=== PATIENT | male | born 1950 | race Hispanic/Latino ===

== ENCOUNTER 2018-01-15 09:31 | Emergency (ER) | payer MEDICARE, OTHER ==
[~2018-01-15] VITALS: Ht 185.4 cm; Wt 103.0 kg
[~2018-01-15 09:31] MED LIST: LOTENSIN40 MG PO; METFORMIN HCL500 M1 PO
[2018-01-15] MEDS ORDERED: METHYLPREDNISOLONE SOD SUCC 125 MG/2ML VIAL IM ONE (10:00)
[2018-01-15] MEDS ORDERED: TETANUS/DIPHTHERIA TOX ADULT 0.5 ML SYR IM ONE (10:15)
[2018-01-15] MEDS ORDERED: DEXAMETHASONE SOD PHOS 10 MG/1 ML VIAL INJ ONE (10:30)
== END 2018-01-15 10:38 | disposition home or self-care (01) ==
LOC: FSED 09:31
DX: L03.113 Cellulitis of right upper limb (principal); I10 Essential (primary) hypertension; E78.5 Hyperlipidemia, unspecified
CPT/HCPCS: 90471; 90714; 99284; J1100; J2930

== ENCOUNTER 2018-03-22 20:40 | Inpatient (IN) | payer MEDICARE ==
[~2018-03-22] VITALS: Ht 185.4 cm; Wt 102.5 kg
[2018-03-22] MEDS ORDERED: DIATRIZOATE MEGL/DIATRIZOA SOD 30 ML BTL PO ONE (21:32)
[2018-03-22 21:44] LABS: BASOPHILS % 0.3 % (0.0-1.0); EOSINOPHILS # (AUTO) 0.1 (0.0-0.4); EOSINOPHILS % 0.6 % (0.0-6.0); HEMATOCRIT 41.1 % (38.2-49.6); LYMPHOCYTES # (AUTO) 2.6 (1.0-3.2); LYMPHOCYTES % 27.6 % (18.0-39.1); MEAN CORPUSCULAR HEMOGLOBIN 28.7 pg (28-32); MEAN CORPUSCULAR HGB CONC 34.1 g/dL (31-35); MEAN CORPUSCULAR VOLUME 84.4 fL (81-99); MONOCYTES # (AUTO) 0.7 (0.2-0.8); MONOCYTES % 7.8 % (4.4-11.3); NEUTROPHILS % 63.6 % (38.7-80.0); PLATELET COUNT 251 x10e3/uL (140-360); RED BLOOD COUNT 4.87 x10e6/uL (4.3-5.7); RED CELL DISTRIBUTION WIDTH 14.4 % (11.7-14.4)
[2018-03-22 22:04] LABS: ANION GAP 15.3 mmol/L (8-16); CALCIUM 9.7 mg/dL (8.4-10.2); CREATININE, SERUM 1.25 mg/dL (0.72-1.25); POTASSIUM 4.3 mmol/L (3.5-5.1)
[2018-03-22] MEDS ORDERED: SODIUM CHLORIDE 0.9% 1000ML 1,000 ML IV ONE (22:30)
[2018-03-23] VITALS (8 sets, daily range): BP systolic 140–174; BP diastolic 65–84
[2018-03-23 00:07] LABS: BILIRUBIN,URINE NEGATIVE (NEGATIVE); CLARITY,URINE CLEAR (CLEAR); COLOR,URINE YELLOW (YELLOW); KETONES,URINE NEGATIVE (NEGATIVE); LEUKOCYTE ESTERASE ,URINE NEGATIVE (NEGATIVE); NITRITE,URINE NEGATIVE (NEGATIVE); PROTEIN,URINE DIPSTICK NEGATIVE (NEGATIVE); URINE UROBILINOGEN 0.2 mg/dL (0.2 - 1)
[2018-03-23] MEDS ORDERED: ONDANSETRON HCL INJ 2 MG/ML VIAL IV STA (00:29)
--- NOTE | 2018-03-23 01:09 | Diagnostic Imaging Report ---
EXAM: CT Abdomen and Pelvis WITH contrast INDICATION: Right lower quadrant pain. COMPARISON: None. TECHNIQUE: Abdomen and pelvis were scanned utilizing a multidetector helical scanner from the lung base to the pubic symphysis after administration of IV contrast. Coronal and sagittal reformations were obtained. Routine protocol was performed. Scan was performed when during portal venous phase. IV CONTRAST: 100 mL of Isovue-370 ORAL CONTRAST: Water RADIATION DOSE: Total DLP: 1119.02 mGy*cm Estimated effective dose: (DLP x 0.015 x size factor) mSv COMPLICATIONS: None FINDINGS: LINES and TUBES: None. LOWER THORAX: Small hiatal hernia present. HEPATOBILIARY: No focal hepatic lesions. No biliary ductal dilation. GALLBLADDER: No radio-opaque stones or sludge. No wall thickening. SPLEEN: No splenomegaly. PANCREAS: No focal masses or ductal dilatation. ADRENALS: No adrenal nodules KIDNEYS/URETERS: Kidneys enhance symmetrically. No hydronephrosis. No cystic or solid mass lesions. No stones. GI TRACT: Cecum and terminal ileum appear to be entrapped within the right inguinal canal contained within an indirect hernia . . The presence of fat stranding around the bowel involve this suggestive of strangulation.. There are diverticula within the colon without evidence of diverticulitis. Appendix is normal. PELVIC ORGANS/BLADDER: Unremarkable. LYMPH NODES: No lymphadenopathy. VESSELS: There is moderate atherosclerotic disease in the aorta and major arterial branches. PERITONEUM / RETROPERITONEUM: No free air or fluid. BONES: Unremarkable. SOFT TISSUES: Unremarkable. IMPRESSION: 1. Cecal and terminal ileum contained within an indirect right inguinal hernia resulting in partial/total obstruction is noted 2. Diverticulosis without evidence of diverticulitis. 3. Small hiatal hernia Signed by: Dr. Mumtaz Perez M.D. on 03/23/2018 1:06 AM
[2018-03-23] MEDS ORDERED: METRONIDAZOLE 500MG/NS 100ML IV SCH (01:30)
[2018-03-23] MEDS ORDERED: CEFOXITIN 1GM/ DEXTROSE 50ML ML IV SCH (01:30)
[2018-03-23] MEDS ORDERED: BENZOCAINE/TETRACAINE/BUTAMBEN AERO SPRAY 56 GM CAN TOP ONE (01:30)
[2018-03-23] MEDS ORDERED: DEXTROSE 50% SYRINGE 50 ML IV PRN (01:30)
[2018-03-23] MEDS ORDERED: LIDOCAINE VISC 2% SOLN 15 ML UDC ONE (01:38)
[2018-03-23] MEDS: SODIUM CHLORIDE 0.9% 1000ML 1,000 ML IV SCH ×3 (03:15→16:13)
[2018-03-23] MEDS ORDERED: ATORVASTATIN CA40 MG PO (04:02)
[2018-03-23] MEDS ORDERED: PIOGLITAZONE HC45 MG PO (04:02)
[2018-03-23] MEDS ORDERED: GLIMEPIRIDE2 MG PO (04:02)
[2018-03-23] MEDS ORDERED: CEFOXITIN SOD 1 GM VIAL ONE (05:29)
[2018-03-23] MEDS ORDERED: HYDRALAZINE HCL 20 MG/ML VIAL IV PRN (05:30)
[2018-03-23] MEDS ORDERED: SODIUM CHLORIDE 0.9% 50ML 50 ML ONE (05:31)
[2018-03-23] MEDS: CEFOXITIN 1GM/ DEXTROSE 50ML ML IV SCH ×2 (05:50→15:34)
[2018-03-23] MEDS ORDERED: ACETAMINOPHEN 1000 MG/100 ML IV PRN (06:15)
[2018-03-23] MEDS: INSULIN REGULAR, HUMAN 100 UNIT/1 ML 3ML VIAL SQ SCH ×4 (07:30→21:00)
[2018-03-23] MEDS: HYDROMORPHONE 1MG/1ML INJ IV PRN ×4 (09:53→16:29)
[2018-03-23] MEDS: ONDANSETRON HCL INJ 2 MG/ML VIAL IV PRN (09:53)
--- NOTE | 2018-03-23 10:08 | Consultation ---
DATE OF CONSULTATION: March 23, 2018 CHIEF COMPLAINT: Abdominal pain and vomiting. HISTORY OF PRESENT ILLNESS: The patient is a 67-year-old male with a known history of right inguinal hernia of 2 months duration, which has gotten more painful with associated nausea and vomiting in the last 24 hours. Patient denied fever or chills. No diarrhea. PAST MEDICAL HISTORY: Significant for hypertension and diabetes. ALLERGIES: PATIENT HAS NO DRUG ALLERGY. SOCIAL HABITS: The patient drinks socially, but does not smoke. SURGICAL HISTORY: Positive for right shoulder surgery. REVIEW OF SYSTEMS: No chest pain, shortness of breath or cough. PHYSICAL EXAMINATION VITALS: Stable. Afebrile. GENERAL: Patient is awake, alert and in moderate discomfort. HEENT: Sclera nonicteric. NECK: Supple. LUNGS: Clear to auscultation. HEART: Regular rate and rhythm. ABDOMEN: Soft. There is an incarcerated right inguinal hernia, which is not reducible. There is some mild tenderness to palpation in the groin area. EXTREMITIES: Without cyanosis or edema. White cell count is 9, hemoglobin of 14. Creatinine of 1.2. CT of the abdomen showed incarcerated cecum and terminal ileum and a right indirect inguinal hernia with intestinal obstruction. ASSESSMENT: Incarcerated possible strangulated right inguinal hernia. PLAN: Repair of incarcerated right groin hernia with mesh. Attendant risks discussed. Job#: [id number] SD
[2018-03-23] MEDS ORDERED: BUPIVACAINE HCL 0.5% INJ 30 ML VIAL INJ ONE (13:12)
[2018-03-23] MEDS ORDERED: CEFOXITIN 1GM/ DEXTROSE 50ML 50 ML IV SCH (16:00)
[2018-03-23] MEDS ORDERED: DEXAMETHASONE SOD PHOS INJ 4 MG/ML VIAL ONE (17:14)
[2018-03-23] MEDS ORDERED: LIDOCAINE HCL 2% LOCAL INJ 5 ML SDV VIAL INJ ONE (17:14)
[2018-03-23] MEDS ORDERED: PROPOFOL IV EMULSION 10 MG/ML 20 ML VIAL ONE (17:14)
[2018-03-23] MEDS ORDERED: NEOSTIGMINE 1 MG/ML 10ML VIAL ONE (17:14)
[2018-03-23] MEDS ORDERED: GLYCOPYRROLATE INJ 1MG/ 5 ML SYR ONE (17:14)
[2018-03-23] MEDS ORDERED: ROCURONIUM BROMIDE 10 MG/ML 5ML VIAL ONE (17:14)
[2018-03-23] MEDS ORDERED: KETOROLAC TROMETHAMINE 30 MG/ML VIAL ONE (17:14)
[2018-03-23] MEDS ORDERED: DESFLURANE 240 ML BTL INH ONE (17:14)
[2018-03-23] MEDS ORDERED: MIDAZOLAM HCL 2 MG/2 ML VIAL ONE (18:53)
[2018-03-23] MEDS ORDERED: FENTANYL CITRATE/PF 100MCG/2 ML INJ ONE (18:53)
--- NOTE | 2018-03-23 20:52 | Operative Report ---
DATE OF PROCEDURE: March 23, 2018 PREOPERATIVE DIAGNOSIS: Incarcerated right inguinal hernia. POSTOPERATIVE DIAGNOSIS: Incarcerated right inguinal hernia. OPERATIVE PROCEDURE: Repair of incarcerated right inguinal hernia with mesh. PHOTO MANAGER: None. ANESTHESIA: General endotracheal. INDICATIONS: A 67-year-old male with history of right inguinal hernia of long duration which became incarcerated and vomiting showing bowel obstruction. The patient then consented for repair of incarcerated right inguinal hernia with mesh with all attendant risks discussed. PROCEDURE FINDINGS: Incarcerated bowel in the hernia sac. DESCRIPTION OF PROCEDURE: The patient brought to the OR intubated. Abdomen prepped with alcohol and draped in sterile fashion. A right inguinal incision is made extending down through the fascia of the external oblique which is then opened in direction of its fibers. The underlying muscle is split and the preperitoneal space is entered. Patient's right spermatic cord is identified and placed in traction with a [place] drain. A large direct hernia sac with incarcerated bowel is then reduced from the inguinal canal and dissected off the spermatic cord to the level of iliac crest. We then proceeded to deploy a 6 x 6 inch Physiomesh into the preperitoneal space and anchored medially to the Henri's ligament with a stitch of 2-0 Prolene suture. The mesh covered the direct and indirect as well as the femoral area. Anteriorly the mesh is anchored to the overlying repair of the transversalis fascia and abdominis muscle with interrupted 2-0 Vicryl. The ____ oblique fascia was then repaired with running 2-0 Prolene stitches. Subcutaneous tissue approximated with 3-0 Vicryl. Skin is closed with subcuticular stitch. The patient is extubated and transported to the recovery room. Estimated blood loss is 5 mm. Job#: [id number]
[2018-03-24 00:07] VITALS: BP 129/59
[2018-03-24] MEDS: CEFOXITIN SOD 1 GM VIAL IV SCH ×2 (00:23→08:13)
[2018-03-24] MEDS: SODIUM CHLORIDE 0.9% 1000ML 1,000 ML IV SCH ×2 (01:43→08:23)
[2018-03-24] MEDS: ONDANSETRON HCL INJ 2 MG/ML VIAL IV PRN (03:02)
[2018-03-24] MEDS: HYDROMORPHONE 1MG/1ML INJ IV PRN (03:03)
[2018-03-24 05:25] LABS: BASOPHILS % 0.3 % (0.0-1.0); EOSINOPHILS % 0.4 % (0.0-6.0); HEMATOCRIT 36.4 % (38.2-49.6); HEMOGLOBIN 12.1 g/dL (14.0-18.0); LYMPHOCYTES # (AUTO) 1.4 (1.0-3.2); LYMPHOCYTES % 20.1 % (18.0-39.1); MEAN CORPUSCULAR HEMOGLOBIN 28.9 pg (28-32); MEAN CORPUSCULAR HGB CONC 33.2 g/dL (31-35); MEAN CORPUSCULAR VOLUME 87.1 fL (81-99); MONOCYTES # (AUTO) 0.6 (0.2-0.8); MONOCYTES % 9.2 % (4.4-11.3); NEUTROPHILS # (AUTO) 4.8 (2.1-6.9); NEUTROPHILS % 69.9 % (38.7-80.0); PLATELET COUNT 213 x10e3/uL (140-360); RED BLOOD COUNT 4.18 x10e6/uL (4.3-5.7); RED CELL DISTRIBUTION WIDTH 14.3 % (11.7-14.4)
[2018-03-24 05:26] VITALS: BP 127/58
[2018-03-24 06:01] LABS: ALANINE AMINOTRANSFERASE 15 IU/L (0-55); ALBUMIN 3.1 g/dL (3.5-5.0); ALKALINE PHOSPHATASE 83 IU/L (40-150); ANION GAP 12.4 mmol/L (8-16); BLOOD UREA NITROGEN 17 mg/dL (7-26); BUN/CREATININE RATIO 16 (6-25); CALCIUM 8.6 mg/dL (8.4-10.2); CARBON DIOXIDE 27 mmol/L (22-29); CHLORIDE 100 mmol/L (98-107); CREATININE, SERUM 1.09 mg/dL (0.72-1.25); EST GLOMERULAR FILTRATION RATE > 60 ML/MIN (60-); GLUCOSE 117 mg/dL (74-118); POTASSIUM 4.4 mmol/L (3.5-5.1); SODIUM 135 mmol/L (136-145)
[2018-03-24 07:20] VITALS: BP 147/61
[2018-03-24 08:00] VITALS: BP 147/61
[2018-03-24] MEDS: INSULIN REGULAR, HUMAN 100 UNIT/1 ML 3ML VIAL SQ SCH ×2 (08:22→11:30)
[2018-03-24 12:29] VITALS: BP 144/60
[2018-03-24] MEDS ORDERED: CEFOXITIN SOD 1 GM VIAL IV SCH (16:15)
[2018-03-24 16:30] VITALS: BP 121/59
== END 2018-03-24 17:05 | disposition home or self-care (01) | DRG 352 ==
LOC: ER 20:40 → ERHOLD 03-23 01:37 → MED/SURG2 03-23 02:47
PROVIDERS: ADMIT Internal Medicine; ATTEND Internal Medicine
PROC: 0YU50JZ Supplement Right Inguinal Region with Synthetic Substitute, Open Approach (ICD-10-PCS; principal; 2018-03-23 13:00)
DX: K40.30 Unilateral inguinal hernia, with obstruction, without gangrene, not specified as recurrent (principal); I10 Essential (primary) hypertension; E11.9 Type 2 diabetes mellitus without complications
CPT/HCPCS: 36415; 74177; 80053; 81001; 82150; 82948; 83690; 85025; 96361; 99284; J0694; J1100; J1170; J1885; J2001; J2250; J2405; J2710; J7030

== ENCOUNTER 2020-06-16 17:07 | Observation (INO) | payer MEDICARE, OTHER ==
[~2020-06-16] VITALS: Ht 185.4 cm; Wt 102.5 kg
[~2020-06-16 17:07] MED LIST changes: +ATORVASTATIN CA40 MG PO; +GLIMEPIRIDE2 MG PO; +PIOGLITAZONE HC45 MG PO
--- OUTSIDE RECORDS SUMMARY | 2020-06-16 18:03 | XMS REPORT | Continuity of Care Document ---
Author Author [facility] t Organization [facility] Address [address] [place] [address] Phone Unavailable Care Team Providers Care Blade Groover Name Role Phone ANGEL MENDOZA MD PCP Terri ROJAS Attphymanpreet Unavailable Payers Payer Name Policy Type Policy Number Effective Date Expiration Date Manpreet Huynh [facility] [id number] 2013 00:00:00 [facility] Problems Condition Name Condition Details Condition Category Status Onset Date Resolution Date Last Treatment Date Treating Clinician Comments Source Incarcerated right inguinal hernia Incarcerated right inguinal h ernia Problem Active [facility] Inguinal hernia with obstruction Inguinal hernia with bowel obst ruction Problem Active [facility] Allergies, Adverse Reactions, Alerts This patient has no known allergies or adverse reactions. Medications Ordered Medication Name Filled Medication Name Start Date Stop Da te Current Medication? Ordering Clinician Indication Dosage Frequency Signature (SIG) Comments Components Source Atorvastatin Calcium 40 Mg Tablet Atorvastatin Calcium 40 Mg Tablet Yes 40 Bedtime [facility] Benazepril Hcl (Lotensin) 40 Mg Tablet Benazepril Hcl (Lotensin) 40 Mg Tablet Yes 40 Rt Daily [facility] Glimepiride 2 Mg Tablet Glimepiride 2 Mg Tablet Yes 4 Daily [facility] Metformin Hcl (Metformin Hcl Er) 500 Mg Tab.er.24h Met formin Hcl (Metformin Hcl Er) 500 Mg Tab.er.24h Yes 500 Twice A Day [facility] Pioglitazone Hcl 45 Mg Tablet Pioglitazone Hcl 45 Mg Tablet Yes 30 Daily [facility] Procedures Procedure Date / Time Performed Performing Clinician Polly e Repair, inguinal hernia, right 2018-03-23 00:00:00 NEGRITO KRISHNA [facility] Computed tomography of abdomen and pelvis with contrast 2017 00:00:00 ANNI ROJAS [facility] Encounters Start Date/Time End Date/Time [facility] Source 2018-03-23 01:37:00 2018-03-24 17:05:00 Discharged Inpatient 1 ANNI ROJAS [facility] [id number] [facility] 2018-01-15 09:31:00 2018-01-15 10:38:00 Departed Emergency Room [facility] [id number] [facility] Results Test Description Test Time Test Comments Results Result Comments Source Bedside Glucose 2018-03-24 16:07:00 Test Item Bedside Glucose (test code = 35869-3) 132 70-120 [id number] 2018-03-24 06:01:00* Test Item Value Reference Range Interpretation Comments Sodium Level (test code = 2951-2) 135 136-145 L [facility] Aloqv7725-04-96 06:01:00* Test Item Value Reference Range Interpretation Comments Potassium Level (test code = 2823-3) 4.4 3.5-5.1 [facility]loride Gjrhw3764-43-43 06:01:00* Test Item Value Reference Range Interpretation Comments Chloride Level (test code = 2075-0) 100 98-107 [facility] MarshallCar[facility] Dioxide Zhrar0724-87-33 06:01:00* Test Item Value Reference Range Interpretation Comments Carbon Dioxide Level (test code = 2028-9) 27 22-29 [facility] MarshallAnion Kmc9112-43-19 06:01:00* Test Item Value Reference Range Interpretation Comments Anion Gap (test code = 29722-2) 12.4 8-16 [facility] Urea Vxdvmjow0018-07-51 06:01:00* Test Item Value Reference Range Interpretation Comments Blood Urea Nitrogen (test code = 3094-0) 17 7-26 [facility] MarshallCreatinine2018-07-19 06:01:00* Test Item Value Reference Range Interpretation Comments Creatinine (test code = 2160-0) 1.09 0.72-1.25 [facility] Marshall[facility]UN/Creatinine Aftbg8420-49-33 06:01:00* Test Item Value Reference Range Interpretation Comments BUN/Creatinine Ratio (test code = 3097-3) 16 6-25 [facility] Marshall[facility]at Glomerular Filtration Rate 2018-03-24 06:01:00* Test Item Value Reference Range Interpretation Comments Estimat Glomerular Filtration Rate (test code = 89069-2) 60- >60 Ranges were taken from the National Kidney Disease Education Program and the [facility] Kidney Foundation literature.Reference ranges:60 or greater: Dymrwp58-73 ( for 3 consecutive months): Chronic kidney disease 15 or less: Kidney failureCHRISTUS [facility] Shepherd Medical Center – MarshallGlucose Qpstg4753-50-10 06:01:00* Test Item Value Reference Range Interpretation Comments Glucose Level (test code = KRS0578) 117 74-118 [facility] MarshallCalcium Bdwkr7347-42-08 06:01:00* Test Item Value Reference Range Interpretation Comments Calcium Level (test code = 41606-4) 8.6 8.4-10.2 [facility] MarshallTotal Qvweczwgm3390-48-91 06:01:00* Test Item Value Reference Range Interpretation Comments Total Bilirubin (test code = 1975-2) 0.9 0.2-1.2 [facility] MarshallAspartate Amino Transf (AST/SGOT) 2018-03-24 06:01:00* Test Item Value Reference Range Interpretation Comments Aspartate Amino Transf (AST/SGOT) (test code = Aspartate Amino Transf (AST/SGOT)) 14 5-34 [facility] MarshallAlanine Aminotransferase (ALT/SGPT) 2018-03-24 06:01:00* Test Item Value Reference Range Interpretation Comments Alanine Aminotransferase (ALT/SGPT) (test code = 1742-6) 15 0-55 [facility] Zjqsyje8693-93-89 06:01:00* Test Item Value Reference Range Interpretation Comments Total Protein (test code = 2885-2) 6.2 6.5-8.1 L [facility] MarshallAlbumin2018-07-19 06:01:00* Test Item Value Reference Range Interpretation Comments Albumin (test code = 1751-7) 3.1 3.5-5.0 L [facility] MarshallGlobulin2018-07-19 06:01:00* Test Item Value Reference Range Interpretation Comments Globulin (test code = 19335-8) 3.1 2.3-3.5 [facility] MarshallAlbumin/Globulin Qidll6323-07-35 06:01:00 * Test Item Value Reference Range Interpretation Comments Albumin/Globulin Ratio (test code = 1759-0) 1.0 0.8-2.0 [facility] MarshallAlkaline Gegjxxnaoxz5814-39-71 06:01:00* Test Item Value Reference Range Interpretation Comments Alkaline Phosphatase (test code = 6768-6) 83 40-150 [facility] MarshallWhite Blood Yxzoe9460-20-99 05:47:00* Test Item Value Reference Range Interpretation Comments White Blood Count (test code = 6690-2) 6.88 4.8-10.8 [facility] MarshallRed Blood Yxkjg4571-02-89 05:47:00* Test Item Value Reference Range Interpretation Comments Red Blood Count (test code = 789-8) 4.18 4.3-5.7 L [facility] MarshallHemoglobin2018-07-19 05:47:00* Test Item Value Reference Range Interpretation Comments Hemoglobin (test code = 20958-6) 12.1 14.0-18.0 L [facility] MarshallHematocrit2018-07-19 05:47:00* Test Item Value Reference Range Interpretation Comments Hematocrit (test code = 4544-3) 36.4 38.2-49.6 L [facility] MarshallMean Corpuscular Wlaftv8096-69-50 05:47:00* Test Item Value Reference Range Interpretation Comments Mean Corpuscular Volume (test code = 787-2) 87.1 81-99 [facility] MarshallMean Corpuscular Iocnypfmic0183-20-03 05:47:00* Test Item Value Reference Range Interpretation Comments Mean Corpuscular Hemoglobin (test code = 785-6) 28.9 28-32 [facility] MarshallMean Corpuscular Hemoglobin Concent 2018-03-24 05:47:00* Test Item Value Reference Range Interpretation Comments Mean Corpuscular Hemoglobin Concent (test code = 786-4) 33.2 31-35 [facility] MarshallRed Cell Distribution Pydjw4137-60-66 05:47:00* Test Item Value Reference Range Interpretation Comments Red Cell Distribution Width (test code = 25943-8) 14.3 11.7 -14.4 [facility] MarshallPlatelet Iwapl6790-11-16 05:47:00* Test Item Value Reference Range Interpretation Comments Platelet Count (test code = 777-3) 213 140-360 [facility] MarshallNeutrophils (%) (Auto)2018-03-24 05:47:00 * Test Item Value Reference Range Interpretation Comments Neutrophils (%) (Auto) (test code = 98315-5) 69.9 38.7-80.0 [facility] MarshallLymphocytes (%) (Auto)2018-03-24 05:47:00 * Test Item Value Reference Range Interpretation Comments Lymphocytes (%) (Auto) (test code = 736-9) 20.1 18.0-39.1 [facility] MarshallMonocytes (%) (Auto)2018-03-24 05:47:00* Test Item Value Reference Range Interpretation Comments Monocytes (%) (Auto) (test code = 5905-5) 9.2 4.4-11.3 [facility] MarshallEosinophils (%) (Auto)2018-03-24 05:47:00 * Test Item Value Reference Range Interpretation Comments Eosinophils (%) (Auto) (test code = 713-8) 0.4 0.0-6.0 [facility] MarshallBasophils (%) (Auto)2018-03-24 05:47:00* Test Item Value Reference Range Interpretation Comments Basophils (%) (Auto) (test code = 706-2) 0.3 0.0-1.0 [facility] MarshallIM GRANULOCYTES %2018-03-24 05:47:00* Test Item Value Reference Range Interpretation Comments IM GRANULOCYTES % (test code = IM GRANULOCYTES %) 0.1 0.0- 1.0 [facility] MarshallNeutrophils # (Auto)2018-03-24 05:47:00* Test Item Value Reference Range Interpretation Comments Neutrophils # (Auto) (test code = 751-8) 4.8 2.1-6.9 [facility] MarshallLymphocytes # (Auto)2018-03-24 05:47:00* Test Item Value Reference Range Interpretation Comments Lymphocytes # (Auto) (test code = 33693-1) 1.4 1.0-3.2 [facility] MarshallMonocytes # (Auto)2018-03-24 05:47:00* Test Item Value Reference Range Interpretation Comments Monocytes # (Auto) (test code = 742-7) 0.6 0.2-0.8 [facility] MarshallEosinophils # (Auto)2018-03-24 05:47:00* Test Item Value Reference Range Interpretation Comments Eosinophils # (Auto) (test code = 711-2) 0.0 0.0-0.4 [facility] MarshallBasophils # (Auto)2018-03-24 05:47:00* Test Item Value Reference Range Interpretation Comments Basophils # (Auto) (test code = 704-7) 0.0 0.0-0.1 [facility] MarshallAbsolute Immature Granulocyte (auto 2018-03-24 05:47:00* Test Item Value Reference Range Interpretation Comments Absolute Immature Granulocyte (auto (michelle t code = Absolute Immature Granulocyte (auto) 0.01 0-0.1 [facility] MarshallCT ABDOM[facility]/PELVIS [id number] 01:03:00 [place] [address] Patient Name: DAVIN RASMUSSEN JR MR #: [id number] OB: 1950 Age/Sex: 67/M Req #: [id number] Adm Physic ann-marie: Ordered by: ANNI ROJAS MD Report #: [id number] Location: E R Room/Bed: Procedure: [id number] CT/CT ABDOMEN/PELVI S W Exam Date: 03/22/18 Exam Time: 0 REPORT STATUS: Signed EXAM: CT Abdomen and Pelvis WITH contrast INDICATION: Rig ht lower quadrant pain. COMPARISON: None. TECHNIQUE: Abdomen and pelvis were scanned utilizing a multidetector helical scanner from the lung base to the p ubic symphysis after administration of IV contrast. Coronal and sagittal refor mations were obtained. Routine protocol was performed. Scan was performed when during portal venous phase. IV CONTRAST: 100 mL of Isovue-370 ORAL CONTRAST: Water RADIATION DOSE: Total DLP: 1119.02 mGy*cm Estimated effective dose: (DLP x 0.015 x size factor) mSv COMPLICATIONS: None FINDINGS: LINES and TUBES: None. LOWER THORAX: Small hiatal hernia present. HEPATOBILIARY: No focal hepatic lesions. No biliary ductal dilation. GALLBLADDER: No radio-opaque stones or sludge. No wall thickening. SPLEEN: No splenomegaly. PANC REAS: No focal masses or ductal dilatation. ADRENALS: No adrenal nodules KIDNEYS/URETERS: Kidneys enhance symmetrically. No hydronephrosis. No cystic or solid mass lesions. No stones. GI TRACT: Cecum and terminal il eum appear to be entrapped within the right inguinal canal contained within an indirect hernia . . The presence of fat stranding around the bowel involve th is suggestive of strangulation.. There are diverticula within the colon withou t evidence of diverticulitis. Appendix is normal. PELVIC ORGANS/BLADDER: Unremarkable. LYMPH NODES: No lymphadenopathy. VESSELS: There is mode rate atherosclerotic disease in the aorta and major arterial branches. PE RITONEUM / RETROPERITONEUM: No free air or fluid. BONES: Unremarkable. SOFT TISSUES: Unremarkable. IMPRESSION: 1. Cecal and termi nal ileum contained within an indirect right inguinal hernia resulting in part ial/total obstruction is noted 2. Diverticulosis without evidence of divertic ulitis. 3. Small hiatal hernia Signed by: Dr. Mumtaz Perez M.D. on 2017 1:06 AM Dictated By: MUMTAZ GUIDO MD 5 Transcribed By: YU on 105 COPY TO: ANNI ROJAS MD Urine [id number] 00:21:00* Test Item Value Reference Range Interpretation Comments Urine WBC (test code = 5821-4) NONE 0-5 [facility] [id number] 00:21:00* Test Item Value Reference Range Interpretation Comments Urine RBC (test code = 38601-7) NONE 0-5 [facility] Marshall[facility] Tgxmfkyp2003-12-13 00:21:00* Test Item Value Reference Range Interpretation Comments Urine Bacteria (test code = 26151-5) NONE NONE [facility] Epithelial Kvoyr2489-83-04 00:21:00 * Test Item Value Reference Range Interpretation Comments Urine Epithelial Cells (test code = 13717-1) NONE NONE [facility] Marshall[facility] Tnvrj9742-67-05 00:07:00* Test Item Value Reference Range Interpretation Comments Urine Color (test code = 5778-6) YELLOW YELLOW [facility] Marshall[facility] Trmjdye3236-39-48 00:07:00* Test Item Value Reference Range Interpretation Comments Urine Clarity (test code = 44586-3) CLEAR CLEAR [facility] MarshallU[facility] Specific [id number] 00:07:00 * Test Item Value Reference Range Interpretation Comments Urine Specific Machias (test code = 5811-5) 1.015 1.010-1.02 5 [facility] Marshall[facility] [id number] 00:07:00* Test Item Value Reference Range Interpretation Comments Urine pH (test code = 17617-6) 6 5-7 [facility] Leukocyte Dgmuklgu7624-21-72 00:07:00* Test Item Value Reference Range Interpretation Comments Urine Leukocyte Esterase (test code = 5799-2) NEGATIVE NEGATIVE [facility] Gerkfii9643-08-73 00:07:00* Test Item Value Reference Range Interpretation Comments Urine Nitrite (test code = 08317-0) NEGATIVE NEGATIVE [facility] Lfpfhnw2774-18-58 00:07:00* Test Item Value Reference Range Interpretation Comments Urine Protein (test code = 5804-0) NEGATIVE NEGATIVE [facility] Marshall[facility] Glucose (UA)2018-03-23 00:07:00* Test Item Value Reference Range Interpretation Comments Urine Glucose (UA) (test code = 2349-9) 1+ NEGATIVE H [facility] MarshallU[facility] Ozrmfdf0916-40-21 00:07:00* Test Item Value Reference Range Interpretation Comments Urine Ketones (test code = 78543-1) NEGATIVE NEGATIVE [facility] Marshall[facility] Yduyqhgtmaba2259-31-25 00:07:00* Test Item Value Reference Range Interpretation Comments Urine Urobilinogen (test code = 66441-5) 0.2 0.2-1 [facility] Marshall[facility] Yayqrttsj3086-42-21 00:07:00* Test Item Value Reference Range Interpretation Comments Urine Bilirubin (test code = 1978-6) NEGATIVE NEGATIVE [facility] Marshall[facility] Lodxe9959-41-66 00:07:00* Test Item Value Reference Range Interpretation Comments Urine Blood (test code = 09508-2) NEGATIVE NEGATIVE [facility] MarshallAmylase Hdcgb6683-97-30 22:09:00* Test Item Value Reference Range Interpretation Comments Amylase Level (test code = 1798-8) 71 25-125 [facility] MarshallLipase2018-07-17 22:09:00* Test Item Value Reference Range Interpretation Comments Lipase (test code = 3040-3) 16 8-78 [facility]
[2020-06-16 18:16] LABS: BASOPHILS % 0.4 % (0.0-1.0); EOSINOPHILS % 0.3 % (0.0-6.0); HEMATOCRIT 41.6 % (38.2-49.6); HEMOGLOBIN 13.5 g/dL (14.0-18.0); LYMPHOCYTES # (AUTO) 1.6 (1.0-3.2); LYMPHOCYTES % 14.7 % (18.0-39.1); MEAN CORPUSCULAR HEMOGLOBIN 28.1 pg (28-32); MEAN CORPUSCULAR HGB CONC 32.5 g/dL (31-35); MEAN CORPUSCULAR VOLUME 86.5 fL (81-99); MONOCYTES # (AUTO) 0.8 (0.2-0.8); MONOCYTES % 6.9 % (4.4-11.3); NEUTROPHILS # (AUTO) 8.6 (2.1-6.9); NEUTROPHILS % 77.4 % (38.7-80.0); PLATELET COUNT 231 x10e3/uL (140-360); RED BLOOD COUNT 4.81 x10e6/uL (4.3-5.7); RED CELL DISTRIBUTION WIDTH 14.9 % (11.7-14.4)
--- NOTE | 2020-06-16 18:28 | Diagnostic Imaging Report ---
History: Syncope Comparison studies: None Technique: Axial images were obtained from the skull base to the vertex. Coronal and sagittal reconstructions obtained from the axial data. Dose modulation, iterative reconstruction, and/or weight based adjustment of the mA/kV was utilized to reduce the radiation dose to as low as reasonably achievable. Intravenous contrast: None Findings: Scalp/skull: No abnormalities. No fractures, blastic or lytic lesions. Extra-axial spaces: No masses. No fluid collections. Brain sulci: Appropriate for age. Ventricles: Normal in size and configuration. No hydrocephalus. Parenchyma: No abnormal densities. No masses, hemorrhage, acute or chronic cortical vascular insults. Sellar/suprasellar region: No abnormalities Craniocervical junction: Patent foramen magnum. No Chiari one malformation. Incidental findings: Subtle atherosclerotic calcifications in the carotid siphons. IMPRESSION: No intracranial abnormalities. Signed by: Dr. Clayton Eason M.D. on 06/16/2020 6:24 PM
--- NOTE | 2020-06-16 18:31 | Emergency Department Note ---
History of Present Illnes History of Present Illness Chief Complaint: Chest Pain History of Present Illness This is a 69 year old male SUDDEN ONSET L SIDED CP FOLLOWED BY SYNCOPAL EPISODE AT 1330 TODAY. SENT TO ER FOR EVAL BY DR WITT. PT DENIES ANY SYMPTOMS AT THIS TIME.. Historian: Patient Arrival Mode: Car Onset (how long ago): hour(s) (5) Location: left chest Quality: pain and syncope Radiation: Reports non-radiation Severity: severe Onset quality: sudden Duration (how long): hour(s) (5) Timing of current episode: unable to specify Progression: resolved Chronicity: new Context: Denies recent illness, Denies recent surgery, Denies recent travel, Denies trauma/injury Relieving factors: none Exacerbating factors: none Associated symptoms: Reports denies other symptoms Treatments prior to arrival: none Past Medical/Family History Physician Review I have reviewed the patient's past medical and family history. Any updates have been documented here. Past Medical History Recent Fever: No Clinical Suspicion of Infectio: No New/Unexplained Change in Ment: No Past Medical History: Hypertension, Diabetes, Hyperlipedemia Other Medical History: R SHOULDER Past Surgical History: T&A Other Surgery: RIGHT SHOULDER SURGERY HERNIA Social History Smoking Cessation: Former smoker Alcohol Use: None Any Illegal Drug Use: No Family History Family history of heart diseas: No Other Last Tetanus: UTD Review of Systems Review of Systems Constitutional: Reports no symptoms EENTM: Reports no symptoms Cardiovascular: Reports as per HPI Respiratory: Reports no symptoms Gastrointestinal: Reports no symptoms Genitourinary: Reports no symptoms Musculoskeletal: Reports no symptoms Integumentary: Reports no symptoms Neurological: Reports as per HPI Psychological: Reports no symptoms Endocrine: Reports no symptoms Hematological/Lymphatic: Reports no symptoms Physical Exam Related Data Allergies: Coded Allergies: No Known Allergies (Unverified , 02/22/14) Triage Vital Signs Vital Signs Date Time Temp Pulse Resp B/P (MAP) Pulse Ox O2 Delivery O2 Flow Rate FiO2 06/16/20 17:24 98.6 87 18 170/50 100 Room Air Vital signs reviewed: Yes Physical Exam CONSTITUTIONAL Constitutional: Present well-developed, Present well-nourished; Absent distressed HENT HENT: Present normocephalic, Present oropharynx clear/moist, Present nose normal, Present other (abrasion to right side of tongue) HENT L/R: Present left ext ear normal, Present right ext ear normal EYES Eyes: Reports PERRL, Reports conjunctivae normal NECK Neck: Present ROM normal PULMONARY Pulmonary: Present effort normal, Present breath sounds normal CARDIOVASCULAR Cardiovascular: Present regular rhythm, Present heart sounds normal, Present capillary refill normal, Present normal rate GASTROINTESTINAL Abdominal: Present soft, Present nontender, Present bowel sounds normal GENITOURINARY Genitourinary: Present exam deferred SKIN Skin: Present warm, Present dry MUSCULOSKELETAL Musculoskeletal: Present ROM normal NEUROLOGICAL Neurological: Present alert, Present oriented x 3, Present no gross motor or sensory deficits PSYCHOLOGICAL Psychological: Present mood/affect normal, Present judgement normal Results Laboratory Result Diagram: 06/16/20 1732 Laboratory Laboratory Tests Test 06/16/20 19:27 06/16/20 17:32 White Blood Count 11.07 x10e3/uL (4.8-10.8) Red Blood Count 4.81 x10e6/uL (4.3-5.7) Hemoglobin 13.5 g/dL (14.0-18.0) Hematocrit 41.6 % (38.2-49.6) Mean Corpuscular Volume 86.5 fL (81-99) Mean Corpuscular Hemoglobin 28.1 pg (28-32) Mean Corpuscular Hemoglobin Concent 32.5 g/dL (31-35) Red Cell Distribution Width 14.9 % (11.7-14.4) Platelet Count 231 x10e3/uL (140-360) Neutrophils (%) (Auto) 77.4 % (38.7-80.0) Lymphocytes (%) (Auto) 14.7 % (18.0-39.1) Monocytes (%) (Auto) 6.9 % (4.4-11.3) Eosinophils (%) (Auto) 0.3 % (0.0-6.0) Basophils (%) (Auto) 0.4 % (0.0-1.0) Neutrophils # (Auto) 8.6 (2.1-6.9) Lymphocytes # (Auto) 1.6 (1.0-3.2) Monocytes # (Auto) 0.8 (0.2-0.8) Eosinophils # (Auto) 0.0 (0.0-0.4) Basophils # (Auto) 0.0 (0.0-0.1) Absolute Immature Granulocyte (auto 0.03 x10e3/uL (0-0.1) Sodium Level 136 mmol/L (136-145) Potassium Level 5.1 mmol/L (3.5-5.1) Chloride Level 103 mmol/L (98-107) Carbon Dioxide Level 20 mmol/L (22-29) Anion Gap 18.1 mmol/L (8-16) Blood Urea Nitrogen 29 mg/dL (7-26) Creatinine 1.84 mg/dL (0.72-1.25) Estimat Glomerular Filtration Rate 37 ML/MIN (60-) BUN/Creatinine Ratio 16 (6-25) Glucose Level 106 mg/dL (74-118) Calcium Level 9.4 mg/dL (8.4-10.2) Total Bilirubin 0.5 mg/dL (0.2-1.2) Aspartate Amino Transf (AST/SGOT) 25 IU/L (5-34) Alanine Aminotransferase (ALT/SGPT) 31 IU/L (0-55) Alkaline Phosphatase 94 IU/L (40-150) Creatine Kinase 277 IU/L (30-200) Creatine Kinase MB 2.90 ng/mL (0-5.0) Troponin I 0.019 ng/mL (0-0.300) Total Protein 7.5 g/dL (6.5-8.1) Albumin 4.2 g/dL (3.5-5.0) Globulin 3.3 g/dL (2.3-3.5) Albumin/Globulin Ratio 1.3 (0.8-2.0) Laboratory Tests Test 06/16/20 17:32 White Blood Count 11.07 x10e3/uL (4.8-10.8) Red Blood Count 4.81 x10e6/uL (4.3-5.7) Hemoglobin 13.5 g/dL (14.0-18.0) Hematocrit 41.6 % (38.2-49.6) Mean Corpuscular Volume 86.5 fL (81-99) Mean Corpuscular Hemoglobin 28.1 pg (28-32) Mean Corpuscular Hemoglobin Concent 32.5 g/dL (31-35) Red Cell Distribution Width 14.9 % (11.7-14.4) Platelet Count 231 x10e3/uL (140-360) Neutrophils (%) (Auto) 77.4 % (38.7-80.0) Lymphocytes (%) (Auto) 14.7 % (18.0-39.1) Monocytes (%) (Auto) 6.9 % (4.4-11.3) Eosinophils (%) (Auto) 0.3 % (0.0-6.0) Basophils (%) (Auto) 0.4 % (0.0-1.0) Neutrophils # (Auto) 8.6 (2.1-6.9) Lymphocytes # (Auto) 1.6 (1.0-3.2) Monocytes # (Auto) 0.8 (0.2-0.8) Eosinophils # (Auto) 0.0 (0.0-0.4) Basophils # (Auto) 0.0 (0.0-0.1) Absolute Immature Granulocyte (auto 0.03 x10e3/uL (0-0.1) Imaging Imaging results reviewed: Yes Impressions Procedure: [id number] DX/CHEST SINGLE (PORTABLE) Exam Date: 06/16/20 Exam Time: 1804 REPORT STATUS: Signed EXAMINATION: CHEST SINGLE (PORTABLE) INDICATION: ^chest pain ^[id number] ^1804 ^Y COMPARISON: Plant [employer] Teacher view from 03/22/2018. FINDINGS: TUBES and LINES: None. LUNGS: Normal lung volumes. Lungs are clear. No consolidations. PLEURA: No pleural effusion or pneumothorax. HEART AND MEDIASTINUM: Heart size is normal. Small hiatal hernia. BONES AND SOFT TISSUES: No acute osseous lesion. Soft tissues are unremarkable. UPPER ABDOMEN: No free air under the diaphragm. IMPRESSION: No acute thoracic radiographic abnormality. Signed by: Gillian Alaniz MD on 06/16/2020 7:05 PM Dictated By: GILLIAN ALANIZ MD 04 Transcribed By: YU on 06/16/201904 COPY TO: ANNI ROJAS MD~ Procedure: [id number] CT/CT BRAIN WO Exam Date: 06/16/20 Exam Time: 1814 REPORT STATUS: Signed History: Syncope Comparison studies: None Technique: Axial images were obtained from the skull base to the vertex. Coronal and sagittal reconstructions obtained from the axial data. Dose modulation, iterative reconstruction, and/or weight based adjustment of the mA/kV was utilized to reduce the radiation dose to as low as reasonably achievable. Intravenous contrast: None Findings: Scalp/skull: No abnormalities. No fractures, blastic or lytic lesions. Extra-axial spaces: No masses. No fluid collections. Brain sulci: Appropriate for age. Ventricles: Normal in size and configuration. No hydrocephalus. Parenchyma: No abnormal densities. No masses, hemorrhage, acute or chronic cortical vascular insults. Sellar/suprasellar region: No abnormalities Craniocervical junction: Patent foramen magnum. No Chiari one malformation. Incidental findings: Subtle atherosclerotic calcifications in the carotid siphons. IMPRESSION: No intracranial abnormalities. Signed by: Dr. Clayton Eason M.D. on 06/16/2020 6:24 PM Dictated By: CLAYTON EASON MD, MD 23 Transcribed By: YU on 06/16/201823 COPY TO: ANNI ROJAS MD~ Procedures 12 Lead ECG Interpretation ECG Interpretation : ECG: ECG 1 Dedicated Regional Driver: Interpreted by ED physician Date: Jun 16, 2020 Time: 17:23 Rhythm: sinus rhythm Rate: normal BPM: 81 QRS axis: normal Conduction: right bundle branch block ST segments normal: Yes T waves normal: Yes Other findings: no other findings Clinical Impression: abnormal ECG Assessment & Plan Medical Decision Making [facility] pt with episode of left chest pain followed by a syncope episode cbc, cmp, ekg, cxr, ct brain , cardiac enzymes ordered to eval for arrhythmia, myocardial infarction, electrolyte abnormality, intracranial pathology(bleed, mass, infarct) i spoke with dr witt and dr ariana johnson pt in obs Assessment & Plan Final Impression: (1) Chest pain (2) Syncope and collapse Depart Disposition: ADMITTED Last Vital Signs Date Time Temp Pulse Resp B/P (MAP) Pulse Ox O2 Delivery O2 Flow Rate FiO2 06/16/20 18:22 75 17 132/63 98 Room Air 06/16/20 17:24 98.6 Home Meds Reported Medications Atorvastatin Calcium (ATORVASTATIN CALCIUM) 40 Mg Tablet, 40 MG PO HS, #30 TAB 03/23/18 Pioglitazone Hcl (PIOGLITAZONE HCL) 45 Mg Tablet, 30 MG PO DAILY, #30 TAB 03/23/18 Glimepiride (GLIMEPIRIDE) 2 Mg Tablet, 4 MG PO DAILY, TAB 03/23/18 Benazepril Hcl (LOTENSIN) 40 Mg Tablet, 40 MG PO RDAILY 02/22/14 Metformin Hcl (METFORMIN HCL ER) 500 Mg Tab.er.24h, 500 MG PO BID 02/22/14 ANNI ROJAS MD Jun 16, 2020 18:31
--- NOTE | 2020-06-16 19:08 | Diagnostic Imaging Report ---
EXAMINATION: CHEST SINGLE (PORTABLE) INDICATION: ^chest pain ^[id number] ^1805 ^Y COMPARISON: Medical Office Rep view from 03/22/2018. FINDINGS: TUBES and LINES: None. LUNGS: Normal lung volumes. Lungs are clear. No consolidations. PLEURA: No pleural effusion or pneumothorax. HEART AND MEDIASTINUM: Heart size is normal. Small hiatal hernia. BONES AND SOFT TISSUES: No acute osseous lesion. Soft tissues are unremarkable. UPPER ABDOMEN: No free air under the diaphragm. IMPRESSION: No acute thoracic radiographic abnormality. Signed by: Vicente Weiner MD on 06/16/2020 7:05 PM
[2020-06-16 19:15] LABS: ALBUMIN 4.2 g/dL (3.5-5.0); ALBUMIN/GLOBULIN RATIO 1.3 (0.8-2.0); ANION GAP 18.1 mmol/L (8-16); CALCIUM 9.4 mg/dL (8.4-10.2); CREATININE, SERUM 1.84 mg/dL (0.72-1.25); POTASSIUM 5.1 mmol/L (3.5-5.1)
[2020-06-16 19:22] LABS: CREATINE KINASE MB 2.9 ng/mL (0-5.0)
[2020-06-16 19:44] LABS: CLARITY,URINE CLEAR (CLEAR); COLOR,URINE YELLOW (YELLOW); LEUKOCYTE ESTERASE ,URINE NEGATIVE (NEGATIVE); NITRITE,URINE NEGATIVE (NEGATIVE); PROTEIN,URINE DIPSTICK TRACE (NEGATIVE)
[2020-06-16 19:45] LABS: BILIRUBIN,URINE SMALL (NEGATIVE); KETONES,URINE TRACE (NEGATIVE); URINE UROBILINOGEN 0.2 mg/dL (0.2 - 1)
[2020-06-16] MEDS ORDERED: SODIUM CHLORIDE 0.9% 1000ML 1,000 ML IV ONE (19:45)
[2020-06-16] MEDS ORDERED: SODIUM CHLORIDE FLUSH 10 ML SYR INJ PRN (19:45)
[2020-06-16] MEDS ORDERED: DEXTROSE 50% SYRINGE 50 ML IV PRN (19:45)
[2020-06-16] MEDS ORDERED: ONDANSETRON HCL INJ 2MG/ML 2ML 2 MG/ML VIAL IV PRN (19:45)
[2020-06-16 19:51] LABS: BACTERIA,URINE RARE /HPF; EPITHELIAL CELLS,URINE FEW /LPF; RBC,URINE 0-5 /HPF (0-5); WBC,URINE (MAN) 0-5 /HPF (0-5)
--- OUTSIDE RECORDS SUMMARY | 2020-06-16 19:57 | XMS REPORT | Continuity of Care Document ---
Author Author [facility] t Organization [facility] Address [address] [place] [address] Phone Unavailable Care Team Providers Care Vp [employer] Name Role Phone ANGEL MENDOZA MD PCP Terri ROJAS Attphychristine Unavailable Payers Payer Name Policy Type Policy Number Effective Date Expiration Date Christine Huynh [facility] [id number] 2013 00:00:00 [facility] Problems Condition Name Condition Details Condition Category Status Onset Date Resolution Date Last Treatment Date Treating Clinician Comments Source Incarcerated right inguinal hernia Incarcerated right inguinal h ernia Problem Active [facility] Inguinal hernia with obstruction Inguinal hernia with bowel obst ruction Problem Active [facility] Allergies, Adverse Reactions, Alerts This patient has no known allergies or adverse reactions. Medications Ordered Medication Name Filled Medication Name Start Date Stop Da te Current Medication? Ordering Clinician Indication Dosage Frequency Signature (SIG) Comments Components Source Atorvastatin Calcium 40 Mg Tablet Atorvastatin Calcium 40 Mg Tablet Yes 40 Bedtime [facility] Benazepril Hcl (Lotensin) 40 Mg Tablet Benazepril Hcl (Lotensin) 40 Mg Tablet Yes 40 Rt Daily [facility] Glimepiride 2 Mg Tablet Glimepiride 2 Mg Tablet Yes 4 Daily [facility] Metformin Hcl (Metformin Hcl Er) 500 Mg Tab.er.24h Met formin Hcl (Metformin Hcl Er) 500 Mg Tab.er.24h Yes 500 Twice A Day [facility] Pioglitazone Hcl 45 Mg Tablet Pioglitazone Hcl 45 Mg Tablet Yes 30 Daily [facility] Procedures Procedure Date / Time Performed Performing Clinician Polly e Repair, inguinal hernia, right 2018-03-23 00:00:00 NEGRITO KRISHNA [facility] Computed tomography of abdomen and pelvis with contrast 2017 00:00:00 ANNI ROJAS [facility] Encounters Start Date/Time End Date/Time [facility] ID Source 2018-03-23 01:37:00 2018-03-24 17:05:00 Discharged Inpatient 1 ANNI ROJAS [facility] [id number] [facility] 2018-01-15 09:31:00 2018-01-15 10:38:00 Departed Emergency Room [facility] [id number] [facility] Results Test Description Test Time Test Comments Results Result Comments Source CHEST SINGLE (PORTABLE) 2020-06-16 19:03:00 [facility] [address] [address] Patient Name: DAVIN RASMUSSEN JR MR #: [id number] : 1950 Age/Sex: 69/M Req #: [id number] Adm Physician: Ordered by: ANNI ROJAS MD Report #: [id number] Location: ER Room/Bed: Procedure: [id number] DX/CHEST SINGLE (PORTABLE) Exam Date: 06/16/20 Exam Time: 1804 REPORT STATUS: Signed EXAMINATION: CHEST SINGLE (PORTABLE) INDICATION: chest pain 20200616 Y COMPARISON: Assembler Insulator view from 03/22/2018. FINDINGS: TUBES and LINES: None. LUNGS: Normal lung volumes. Lungs are clear. No consolidations. PLEURA: No pleural effusion or pneumothorax. HEART AND MEDIASTINUM: Heart size is normal. Small hiatal hernia. BONES AND SOFT TISSUES: No acute osseous lesion. Soft tissues are unremarkable. UPPER ABDOMEN: No free air under the diaphragm. IMPRESSION: No acute thoracic radiographic abnormality. Signed by: Gillian Alaniz MD on 06/16/2020 7:05 PM Dictated By: GILLIAN ALANIZ MD 04 Transcribed By: YU on 06/16/201904 COPY TO: ANNI ROJAS MD CT BRAIN WO 2020-06-16 18:23:00 [address] [address] Patient Name: DAVIN RASMUSSEN JR MR #: [id number] : 1950 Age/Sex: 69/M Req #: [id number] Adm Physician: Ordered by: ANNI ROJAS MD Report #: [id number] Location: ER Room/Bed: Procedure: [id number] CT/CT BRAIN WO Exam Date: 06/16/20 Exam Time: 1814 REPORT STATUS: Signed History: Syncope Comparison studies: None Technique: Axial images were obtained from the skull base to the vertex. Coronal and sagittal reconstructions obtained from the axial data. Dose modulation, iterative reconstruction, and/or weight based adjustment of the mA/kV was utilized to reduce the radiation dose to as low as reasonably achievable. Intravenous contrast: None Findings: Scalp/skull: No abnormalities. No fractures, blastic or lytic lesions. Extra-axial spaces: No masses. No fluid collections. Brain sulci: Appropriate for age. Ventricles: Normal in size and configuration. No hydrocephalus. Parenchyma: No abnormal densities. No masses, hemorrhage, acute or chronic cortical vascular insults. Sellar/suprasellar region: No abnormalities Craniocervical junction: Patent foramen magnum. No Chiari one malformation. Incidental findings: Subtle atherosclerotic calcifications in the carotid siphons. IMPRESSION: No intracranial abnormalities. Signed by: Dr. Clayton Eason M.D. on 06/16/2020 6:24 PM Dictated By: CLAYTON EASON MD, MD 23 Transcribed By: YU on 06/16/201823 COPY TO: ANNI ROJAS MD Bedside Glucose 2018-03-24 16:07:00 Test Item Bedside Glucose (test code = 89963-4) 132 70-120 H Meter ID: [id number]. Joseph Medical Centerodium Level 2018-03-24 06:01:00* Test Item Value Reference Range Interpretation Comments Sodium Level (test code = 2951-2) 135 136-145 L [facility]woodPotassium Haptf5770-47-27 06:01:00* Test Item Value Reference Range Interpretation Comments Potassium Level (test code = 2823-3) 4.4 3.5-5.1 [facility]woodChloride Efsex8462-26-72 06:01:00* Test Item Value Reference Range Interpretation Comments Chloride Level (test code = 2075-0) 100 98-107 [facility]woodCarbon Dioxide Nbymx0647-17-97 06:01:00* Test Item Value Reference Range Interpretation Comments Carbon Dioxide Level (test code = 2028-9) 27 22-29 [facility]woodAnion Ojx5284-48-24 06:01:00* Test Item Value Reference Range Interpretation Comments Anion Gap (test code = 84124-9) 12.4 8-16 [facility] KingwoodBlood Urea Mkctbrjy5677-01-68 06:01:00* Test Item Value Reference Range Interpretation Comments Blood Urea Nitrogen (test code = 3094-0) 17 7-26 [facility]woodCreatinine2018-07-19 06:01:00* Test Item Value Reference Range Interpretation Comments Creatinine (test code = 2160-0) 1.09 0.72-1.25 [facility]woodBUN/Creatinine Agllo9979-14-28 06:01:00* Test Item Value Reference Range Interpretation Comments BUN/Creatinine Ratio (test code = 3097-3) 16 6-25 [facility] KingwoodEstimat Glomerular Filtration Rate 2018-03-24 06:01:00* Test Item Value Reference Range Interpretation Comments Estimat Glomerular Filtration Rate (test code = 83142-7) 60- >60 Ranges were taken from the National Kidney Disease Education Program and the [facility] Kidney Foundation literature.Reference ranges:60 or greater: Sypqus79-19 ( for 3 consecutive months): Chronic kidney disease 15 or less: Kidney failureCHI Michael E. Debakey [facility] Of Veterans Affairs Medical CenterGlucose Wfjvh0633-79-98 06:01:00* Test Item Value Reference Range Interpretation Comments Glucose Level (test code = QDU0047) 117 74-118 [facility]woodCalcium Cldzo8256-09-32 06:01:00* Test Item Value Reference Range Interpretation Comments Calcium Level (test code = 75343-1) 8.6 8.4-10.2 [facility]woodTotal Txoxxmlck1177-83-79 06:01:00* Test Item Value Reference Range Interpretation Comments Total Bilirubin (test code = 1975-2) 0.9 0.2-1.2 [facility] KingwoodAspartate Amino Transf (AST/SGOT) 2018-03-24 06:01:00* Test Item Value Reference Range Interpretation Comments Aspartate Amino Transf (AST/SGOT) (test code = Aspartate Amino Transf (AST/SGOT)) 14 5-34 [facility] KingwoodAlanine Aminotransferase (ALT/SGPT) 2018-03-24 06:01:00* Test Item Value Reference Range Interpretation Comments Alanine Aminotransferase (ALT/SGPT) (test code = 1742-6) 15 0-55 [facility] KingwoodTotal Zlqahlc4558-18-84 06:01:00* Test Item Value Reference Range Interpretation Comments Total Protein (test code = 2885-2) 6.2 6.5-8.1 L [facility] KingwoodAlbumin2018-07-19 06:01:00* Test Item Value Reference Range Interpretation Comments Albumin (test code = 1751-7) 3.1 3.5-5.0 L [facility] KingwoodGlobulin2018-07-19 06:01:00* Test Item Value Reference Range Interpretation Comments Globulin (test code = 72359-2) 3.1 2.3-3.5 [facility] KingwoodAlbumin/Globulin Pipvl4409-02-91 06:01:00 * Test Item Value Reference Range Interpretation Comments Albumin/Globulin Ratio (test code = 1759-0) 1.0 0.8-2.0 [facility] KingwoodAlkaline Mqubcjisxjs8481-30-83 06:01:00* Test Item Value Reference Range Interpretation Comments Alkaline Phosphatase (test code = 6768-6) 83 40-150 [facility] KingwoodWhite Blood Vacwr4281-45-97 05:47:00* Test Item Value Reference Range Interpretation Comments White Blood Count (test code = 6690-2) 6.88 4.8-10.8 [facility] KingwoodRed Blood Fnmau6123-56-85 05:47:00* Test Item Value Reference Range Interpretation Comments Red Blood Count (test code = 789-8) 4.18 4.3-5.7 L [facility] KingwoodHemoglobin2018-07-19 05:47:00* Test Item Value Reference Range Interpretation Comments Hemoglobin (test code = 94017-6) 12.1 14.0-18.0 L [facility]woodHematocrit2018-07-19 05:47:00* Test Item Value Reference Range Interpretation Comments Hematocrit (test code = 4544-3) 36.4 38.2-49.6 L [facility] KingwoodMean Corpuscular Sozmkn1106-50-92 05:47:00* Test Item Value Reference Range Interpretation Comments Mean Corpuscular Volume (test code = 787-2) 87.1 81-99 [facility] KingwoodMean Corpuscular Summaapwpz7157-58-59 05:47:00* Test Item Value Reference Range Interpretation Comments Mean Corpuscular Hemoglobin (test code = 785-6) 28.9 28-32 [facility] KingwoodMean Corpuscular Hemoglobin Concent 2018-03-24 05:47:00* Test Item Value Reference Range Interpretation Comments Mean Corpuscular Hemoglobin Concent (test code = 786-4) 33.2 31-35 [facility] KingwoodRed Cell Distribution Jjttg0151-12-18 05:47:00* Test Item Value Reference Range Interpretation Comments Red Cell Distribution Width (test code = 16160-6) 14.3 11.7 -14.4 [facility] KingwoodPlatelet Jwbgj8411-65-66 05:47:00* Test Item Value Reference Range Interpretation Comments Platelet Count (test code = 777-3) 213 140-360 [facility] KingwoodNeutrophils (%) (Auto)2018-03-24 05:47:00 * Test Item Value Reference Range Interpretation Comments Neutrophils (%) (Auto) (test code = 94233-9) 69.9 38.7-80.0 [facility] KingwoodLymphocytes (%) (Auto)2018-03-24 05:47:00 * Test Item Value Reference Range Interpretation Comments Lymphocytes (%) (Auto) (test code = 736-9) 20.1 18.0-39.1 [facility] KingwoodMonocytes (%) (Auto)2018-03-24 05:47:00* Test Item Value Reference Range Interpretation Comments Monocytes (%) (Auto) (test code = 5905-5) 9.2 4.4-11.3 [facility]woodEosinophils (%) (Auto)2018-03-24 05:47:00 * Test Item Value Reference Range Interpretation Comments Eosinophils (%) (Auto) (test code = 713-8) 0.4 0.0-6.0 [facility] KingwoodBasophils (%) (Auto)2018-03-24 05:47:00* Test Item Value Reference Range Interpretation Comments Basophils (%) (Auto) (test code = 706-2) 0.3 0.0-1.0 [facility] KingwoodIM GRANULOCYTES %2018-03-24 05:47:00* Test Item Value Reference Range Interpretation Comments IM GRANULOCYTES % (test code = IM GRANULOCYTES %) 0.1 0.0- 1.0 [facility] KingwoodNeutrophils # (Auto)2018-03-24 05:47:00* Test Item Value Reference Range Interpretation Comments Neutrophils # (Auto) (test code = 751-8) 4.8 2.1-6.9 [facility] KingwoodLymphocytes # (Auto)2018-03-24 05:47:00* Test Item Value Reference Range Interpretation Comments Lymphocytes # (Auto) (test code = 85655-9) 1.4 1.0-3.2 [facility] KingwoodMonocytes # (Auto)2018-03-24 05:47:00* Test Item Value Reference Range Interpretation Comments Monocytes # (Auto) (test code = 742-7) 0.6 0.2-0.8 [facility]woodEosinophils # (Auto)2018-03-24 05:47:00* Test Item Value Reference Range Interpretation Comments Eosinophils # (Auto) (test code = 711-2) 0.0 0.0-0.4 [facility] KingwoodBasophils # (Auto)2018-03-24 05:47:00* Test Item Value Reference Range Interpretation Comments Basophils # (Auto) (test code = 704-7) 0.0 0.0-0.1 [facility] KingwoodAbsolute Immature Granulocyte (auto 2018-03-24 05:47:00* Test Item Value Reference Range Interpretation Comments Absolute Immature Granulocyte (auto (michelle t code = Absolute Immature Granulocyte (auto) 0.01 0-0.1 [facility] KingwoodCT ABDOMEN/PELVIS [id number] 01:03:00 [address] [address] Patient Name: DAVIN RASMUSSEN JR MR #: [id number] OB: 1950 Age/Sex: 67/M Req #: [id number] Adm Physic ann-marie: Ordered by: ANNI ROJAS MD Report #: [id number] Location: E R Room/Bed: Procedure: [id number] CT/CT ABDOMEN/PELVI S W Exam Date: 03/22/18 Exam Time: 2320 REPORT STATUS: Signed EXAM: CT Abdomen and [...] 105 COPY TO: ANNI ROJAS MD Urine [id number] 00:21:00* Test Item Value Reference Range Interpretation Comments Urine WBC (test code = 5821-4) NONE 0-5 [facility] KingwoodUrine BSS9109-81-26 00:21:00* Test Item Value Reference Range Interpretation Comments Urine RBC (test code = 16052-3) NONE 0-5 [facility] KingwoodUrine Lmonxrrv6631-05-58 00:21:00* Test Item Value Reference Range Interpretation Comments Urine Bacteria (test code = 14519-1) NONE NONE [facility] KingwoodUrine Epithelial Tnkld5016-09-88 00:21:00 * Test Item Value Reference Range Interpretation Comments Urine Epithelial Cells (test code = 03720-3) NONE NONE [facility] KingwoodUrine Trucc0171-38-51 00:07:00* Test Item Value Reference Range Interpretation Comments Urine Color (test code = 5778-6) YELLOW YELLOW [facility] KingwoodUrine Obwefgn8285-30-23 00:07:00* Test Item Value Reference Range Interpretation Comments Urine Clarity (test code = 40171-3) CLEAR CLEAR [facility] KingwoodUrine Specific Gowraug7821-62-34 00:07:00 * Test Item Value Reference Range Interpretation Comments Urine Specific Kellogg (test code = 5811-5) 1.015 1.010-1.02 5 [facility] KingwoodUrine qN7355-77-03 00:07:00* Test Item Value Reference Range Interpretation Comments Urine pH (test code = 21947-1) 6 5-7 [facility] KingwoodUrine Leukocyte Vodqxfuj7839-98-10 00:07:00* Test Item Value Reference Range Interpretation Comments Urine Leukocyte Esterase (test code = 5799-2) NEGATIVE NEGATIVE [facility] KingwoodUrine Iqeimla9652-59-29 00:07:00* Test Item Value Reference Range Interpretation Comments Urine Nitrite (test code = 36023-4) NEGATIVE NEGATIVE [facility] KingwoodUrine Tdtnlyd3102-91-83 00:07:00* Test Item Value Reference Range Interpretation Comments Urine Protein (test code = 5804-0) NEGATIVE NEGATIVE [facility] KingwoodUrine Glucose (UA)2018-03-23 00:07:00* Test Item Value Reference Range Interpretation Comments Urine Glucose (UA) (test code = 2349-9) 1+ NEGATIVE H [facility] KingwoodUrine Bkckbgn5781-11-01 00:07:00* Test Item Value Reference Range Interpretation Comments Urine Ketones (test code = 52136-1) NEGATIVE NEGATIVE [facility] KingwoodUrine Wauzzalnvtsm9074-37-70 00:07:00* Test Item Value Reference Range Interpretation Comments Urine Urobilinogen (test code = 12369-0) 0.2 0.2-1 [facility] KingwoodUrine Clmjcpkuq0006-33-07 00:07:00* Test Item Value Reference Range Interpretation Comments Urine Bilirubin (test code = 1978-6) NEGATIVE NEGATIVE [facility] KingwoodUrine Hvvqz7428-42-24 00:07:00* Test Item Value Reference Range Interpretation Comments Urine Blood (test code = 15817-8) NEGATIVE NEGATIVE [facility] KingwoodAmylase Sgwhg5745-60-68 22:09:00* Test Item Value Reference Range Interpretation Comments Amylase Level (test code = 1798-8) 71 25-125 [facility] KingwoodLipase2018-07-17 22:09:00* Test Item Value Reference Range Interpretation Comments Lipase (test code = 3040-3) 16 8-78 [facility]
--- NOTE | 2020-06-16 20:06 | NUR ---
Patient arrived to unit via wheelchair in stable condition, no c/o chest pain, environmental monitoring technician showing sinus rhythm, no s/s of distress at this time. Patient oriented to room, hospital policies, and plan of care. Bed locked and in lowest position, side rails upx2, call light placed within reach. Patient instructed to call for assistance if needed, verbalized understanding. All safety measures in place.
[2020-06-16 20:30] VITALS: BP 140/65
[2020-06-16] MEDS: INSULIN REGULAR, HUMAN 100 UNIT/1 ML 3ML VIAL SQ SCH (20:30)
[2020-06-16] MEDS: FAMOTIDINE 20 MG/2 ML VIAL IV SCH (20:34)
[2020-06-16] MEDS ORDERED: FLOMAX0.4 MG PO (20:47)
--- NOTE | 2020-06-16 20:47 | NUR ---
COVID swab already performed per ER nurse.
[2020-06-16 22:36] VITALS: BP 140/65
[2020-06-16 22:39] VITALS: BP 140/65
--- NOTE | 2020-06-16 23:19 | NUR ---
Verified with patient that he was tested for COVID in ER.
[2020-06-17 00:03] VITALS: BP 138/71
--- NOTE | 2020-06-17 01:34 | NUR ---
Second set of cardiac markers drawn and sent to lab as ordered.
[2020-06-17 02:25] LABS: CREATINE KINASE MB 2.6 ng/mL (0-5.0)
[2020-06-17 05:06] VITALS: BP 144/70
[2020-06-17 06:00] LABS: BASOPHILS % 0.6 % (0.0-1.0); EOSINOPHILS # (AUTO) 0.2 (0.0-0.4); EOSINOPHILS % 2.5 % (0.0-6.0); HEMATOCRIT 38.6 % (38.2-49.6); HEMOGLOBIN 12.9 g/dL (14.0-18.0); LYMPHOCYTES # (AUTO) 2.2 (1.0-3.2); LYMPHOCYTES % 30.8 % (18.0-39.1); MEAN CORPUSCULAR HGB CONC 33.4 g/dL (31-35); MEAN CORPUSCULAR VOLUME 86.7 fL (81-99); MONOCYTES # (AUTO) 0.7 (0.2-0.8); MONOCYTES % 9.5 % (4.4-11.3); NEUTROPHILS % 56.5 % (38.7-80.0); PLATELET COUNT 197 x10e3/uL (140-360); RED BLOOD COUNT 4.45 x10e6/uL (4.3-5.7); RED CELL DISTRIBUTION WIDTH 14.9 % (11.7-14.4)
--- NOTE | 2020-06-17 06:08 | History and Physical ---
REASON FOR ADMISSION: Chest pain, rule out NH, and syncope. HISTORY OF PRESENT ILLNESS: The patient is a 69-year-old gentleman, well known to me, who was outside in the heat he started becoming lightheaded, vision started getting blurry, and he started having some mild chest pain and that was stated by the family that he passed out for a very short period of time. Upon awakening, he stated that he was feeling okay and did not actually want to come to the emergency room. I did instruct for him to go ahead and come to the emergency room where he states he is feeling good at this moment, but he has been admitted for further evaluation and treatment. PAST MEDICAL HISTORY: Diabetes, hypertension, hyperlipidemia, chronic kidney disease, stage 3. MEDICATIONS: See NOV. ALLERGIES: NONE. SOCIAL HISTORY: Lives at home with his . Nonsmoker and nondrinker. FAMILY HISTORY: Hypertension. PHYSICAL EXAMINATION: VITAL SIGNS: Temperature 98.3, pulse 68, blood pressure 138/71, sats 98% on room air. GENERAL: He is in no apparent distress, lying in bed. NECK: Supple. No bruits. No JVD. CARDIOVASCULAR: Regular rate and rhythm. ABDOMEN: Good bowel sounds. Soft, nontender. EXTREMITIES: Show no clubbing or cyanosis. NEUROLOGIC: Nonfocal. ASSESSMENT AND PLAN: 1. Chest pain, rule out for NH with serial enzymes. Consult Cardiology. 2. Syncope, concerned that may be possibly he was orthostatic due to being out in the heat and also being dehydrated on top of his chronic kidney disease, stage 3, so we will give him IV fluids and recheck his labs and check carotid Doppler and echo. 3. Chronic kidney disease, stage 3. We will check labs after fluids. 4. Diabetes. Continue current care and monitoring of his sugars. 5. Hypertension. We will continue to monitor and hold off on his TYRESE inhibitor due to chronic kidney disease, stage 3. 6. Hyperlipidemia. We will restart his atorvastatin. Please see hospital chart for full details. MD ROBERTO Reynolds/GIANNI /[id number]
[2020-06-17 06:27] LABS: ALBUMIN 3.5 g/dL (3.5-5.0); ALBUMIN/GLOBULIN RATIO 1.2 (0.8-2.0); ANION GAP 12.2 mmol/L (8-16); CALCIUM 8.7 mg/dL (8.4-10.2); CREATININE, SERUM 1.23 mg/dL (0.72-1.25); POTASSIUM 4.2 mmol/L (3.5-5.1)
--- NOTE | 2020-06-17 06:45 | NUR ---
Routine consult called to Dr. Christensen. Voicemail left.
[2020-06-17 06:47] LABS: CREATINE KINASE 256 IU/L (30-200)
--- NOTE | 2020-06-17 07:00 | NUR ---
BEDSIDE SHIFT REPORT RECEIVED FROM GINNY SUNSHINE. PT DENIES NEEDS.
[2020-06-17] MEDS: INSULIN REGULAR, HUMAN 100 UNIT/1 ML 3ML VIAL SQ SCH ×3 (07:30→16:30)
[2020-06-17] MEDS: FAMOTIDINE 20 MG/2 ML VIAL IV SCH (08:00)
[2020-06-17 08:08] VITALS: BP 150/70
[2020-06-17 08:19] VITALS: BP 150/70
[2020-06-17] MEDS ORDERED: GLIMEPIRIDE 2 MG TAB PO SCH (09:00)
[2020-06-17] MEDS ORDERED: ASPIRIN 81 MG ENTERIC COATED PO SCH (09:00)
[2020-06-17] MEDS ORDERED: TAMSULOSIN HCL 0.4 MG CAP PO SCH (09:00)
[2020-06-17 12:18] VITALS: BP 144/71
--- NOTE | 2020-06-17 12:35 | Consultation ---
DATE OF CONSULTATION: 06/17/2020 REASON FOR CONSULT: Syncope, chest pain. CHIEF COMPLAINT: Chest pain, I passed out. HISTORY OF PRESENT ILLNESS: A 69-year-old man with history of hypertension, hyperlipidemia, diabetes, who was sitting at home last night when he experience discomfort in the left side of his chest, felt dizzy and hot and said he passed out, was not doing anything, just sitting in a chair. Denies any palpitations or any postictal state after he regain consciousness, was out for maybe a minute or two per the patient. No previous history of cardiovascular issues. The patient says he walks regularly with his around the park and does not have any shortness of breath or chest pain. Denies any orthopnea or PND. REVIEW OF SYSTEMS: As per HPI, otherwise negative. SOCIAL HISTORY: Does not smoke, drink, or abuse drugs. FAMILY HISTORY: Noncontributory. OUTPATIENT MEDICATIONS: Reviewed. PAST MEDICAL HISTORY: Hypertension, hyperlipidemia, diabetes. ALLERGIES: NO KNOWN DRUG ALLERGIES. PHYSICAL EXAMINATION: VITAL SIGNS: Temperature afebrile, pulse 71, respiratory rate 16, blood pressure 150/70, saturating 100% on room air. GENERAL: Middle-aged man, in no acute distress. CARDIOVASCULAR: Regular rate and rhythm. No murmurs, rubs, or gallops. LUNGS: Clear to auscultation anteriorly. ABDOMEN: Soft, nontender, nondistended. NEURO AND PSYCH: Alert, oriented to person, place, and time. Normal affect. INPATIENT MEDICATIONS: Reviewed. LABORATORY DATA: Reviewed. Troponins negative x2. GFR 59. IMAGING DATA: Reviewed. Brain CT shows no acute abnormalities. Chest x-ray shows no acute abnormalities. Echocardiogram reviewed, shows normal LV function. No significant valvular abnormalities. ASSESSMENT: 1. Atypical chest pain. 2. Episode of syncope. 3. Hypertension. 4. Hyperlipidemia. 5. Diabetes. PLAN: Continue to monitor on telemetry, has been ruled out for acute NM. Echocardiogram shows normal LV function, no significant valvular abnormalities. Carotid duplex is pending. We will monitor patient for 24 hours. If the carotid Dopplers are normal, he is okay to be discharged home from cardiovascular standpoint to follow up as an outpatient in the office if symptoms recur. MD MAMIE Webb/GIANNI /[id number]
[2020-06-17 13:49] LABS: CREATINE KINASE 270 IU/L (30-200)
[2020-06-17 16:01] VITALS: BP 134/68
[2020-06-17] MEDS ORDERED: ONDANSETRON HCL 4 MG ORAL DISINTEGRATING TAB PO PRN (17:30)
[2020-06-17] MEDS ORDERED: FAMOTIDINE 20 MG TAB PO SCH (20:00)
[2020-06-17] MEDS ORDERED: ATORVASTATIN 40 MG TAB PO SCH (21:00)
== END 2020-06-17 17:41 | disposition home or self-care (01) ==
LOC: ER 17:30 → ERHOLD 19:54 → MED/SURG 20:24
PROVIDERS: ADMIT Internal Medicine; ATTEND Internal Medicine
DX: R07.89 Other chest pain (principal); I12.9 Hypertensive chronic kidney disease with stage 1 through stage 4 chronic kidney disease, or unspecified chronic kidney disease; E11.22 Type 2 diabetes mellitus with diabetic chronic kidney disease; N18.30 Chronic kidney disease, stage 3 unspecified; Z79.899 Other long term (current) drug therapy; E78.5 Hyperlipidemia, unspecified
CPT/HCPCS: 36415; 70450; 71045; 80053 ×2; 80061; 81001; 82550 ×2; 82553 ×2; 82948 ×2; 84484 ×2; 85025 ×2; 93005; 93306; 93880; 96372; 99284; G0378 ×2; J1817; J7030; U0002

== ENCOUNTER 2020-10-16 10:28 | Inpatient (IN) | payer MEDICARE ==
[2020-10-11 09:36] LABS: BASOPHILS % 0.4 % (0.0-1.0); EOSINOPHILS # (AUTO) 0.3 (0.0-0.4); EOSINOPHILS % 2.9 % (0.0-6.0); HEMATOCRIT 40.8 % (38.2-49.6); HEMOGLOBIN 13.4 g/dL (14.0-18.0); LYMPHOCYTES # (AUTO) 2.3 (1.0-3.2); LYMPHOCYTES % 26.7 % (18.0-39.1); MEAN CORPUSCULAR HEMOGLOBIN 27.9 pg (28-32); MEAN CORPUSCULAR HGB CONC 32.8 g/dL (31-35); MONOCYTES # (AUTO) 0.6 (0.2-0.8); MONOCYTES % 7.3 % (4.4-11.3); NEUTROPHILS # (AUTO) 5.3 (2.1-6.9); NEUTROPHILS % 62.5 % (38.7-80.0); PLATELET COUNT 231 x10e3/uL (140-360); RED CELL DISTRIBUTION WIDTH 14.9 % (11.7-14.4)
[2020-10-11 10:15] LABS: ALANINE AMINOTRANSFERASE 27 IU/L (0-55); ALKALINE PHOSPHATASE 86 IU/L (40-150); ANION GAP 14.9 mmol/L (8-16); BLOOD UREA NITROGEN 20 mg/dL (7-26); BUN/CREATININE RATIO 19 (6-25); CALCIUM 9.9 mg/dL (8.4-10.2); CARBON DIOXIDE 25 mmol/L (22-29); CHLORIDE 103 mmol/L (98-107); CREATININE, SERUM 1.07 mg/dL (0.72-1.25); EST GLOMERULAR FILTRATION RATE > 60 ML/MIN (60-); GLUCOSE 127 mg/dL (74-118); POTASSIUM 4.9 mmol/L (3.5-5.1); SODIUM 138 mmol/L (136-145)
[~2020-10-16] VITALS: Ht 185.4 cm; Wt 102.5 kg
[~2020-10-16 10:28] MED LIST changes: +FINASTERIDE5 MG PO; +FLOMAX0.4 MG PO
[2020-10-16] MEDS ORDERED: SODIUM CHLORIDE 0.45% 1,000 ML ONE (10:47)
[2020-10-16] MEDS ORDERED: CEFTRIAXONE SOD 1 GM/NS 50 ML 50 ML IV ONE (10:47)
[2020-10-16] MEDS ORDERED: GENTAMICIN 80MG/NS 100 ML 200 ML IV ONE (10:47)
[2020-10-16] MEDS ORDERED: B&O 60MG R/S 60 MG SUPP PR ONE (12:10)
[2020-10-16] MEDS ORDERED: IOPAMIDOL 300MG/ML 50ML INFUS..BTL IV ONE (12:10)
[2020-10-16] MEDS ORDERED: DIPHENHYDRAMINE HCL 25 MG CAP PO PRN (13:45)
[2020-10-16] MEDS ORDERED: ACETAMINOPHEN/CODEINE 300MG - 30MG TAB PO PRN (13:45)
[2020-10-16] MEDS ORDERED: PHENAZOPYRIDINE HCL 100 MG TAB PO PRN (13:45)
[2020-10-16] MEDS ORDERED: B&O 60MG R/S 60 MG SUPP PR PRN (13:45)
[2020-10-16] MEDS ORDERED: ONDANSETRON HCL INJ 2MG/ML 2ML 2 MG/ML VIAL IV PRN (13:45)
[2020-10-16 14:06] LABS: BASOPHILS % 0.4 % (0.0-1.0); EOSINOPHILS # (AUTO) 0.1 (0.0-0.4); EOSINOPHILS % 2.1 % (0.0-6.0); HEMATOCRIT 36.8 % (38.2-49.6); HEMOGLOBIN 12.2 g/dL (14.0-18.0); LYMPHOCYTES # (AUTO) 1.7 (1.0-3.2); LYMPHOCYTES % 24.7 % (18.0-39.1); MEAN CORPUSCULAR HEMOGLOBIN 28.2 pg (28-32); MEAN CORPUSCULAR HGB CONC 33.2 g/dL (31-35); MONOCYTES # (AUTO) 0.3 (0.2-0.8); MONOCYTES % 4.9 % (4.4-11.3); NEUTROPHILS # (AUTO) 4.6 (2.1-6.9); NEUTROPHILS % 67.5 % (38.7-80.0); PLATELET COUNT 190 x10e3/uL (140-360); RED BLOOD COUNT 4.33 x10e6/uL (4.3-5.7); RED CELL DISTRIBUTION WIDTH 15.1 % (11.7-14.4)
[2020-10-16 14:20] LABS: ANION GAP 11.6 mmol/L (8-16); BLOOD UREA NITROGEN 17 mg/dL (7-26); BUN/CREATININE RATIO 20 (6-25); CARBON DIOXIDE 21 mmol/L (22-29); CHLORIDE 107 mmol/L (98-107); CREATININE, SERUM 0.87 mg/dL (0.72-1.25); EST GLOMERULAR FILTRATION RATE > 60 ML/MIN (60-); GLUCOSE 144 mg/dL (74-118); POTASSIUM 4.6 mmol/L (3.5-5.1); SODIUM 135 mmol/L (136-145)
[2020-10-16 14:50] VITALS: BP 142/72
[2020-10-16 15:30] VITALS: BP 142/72
[2020-10-16] MEDS: SOD CHL 0.45%/POT CHL 20MEQ 1,000 ML IV SCH (17:21)
[2020-10-16] MEDS: DOCUSATE SODIUM 100 MG CAP PO SCH (17:21)
[2020-10-16 20:00] VITALS: BP 132/67
[2020-10-16 21:00] VITALS: BP 132/67
[2020-10-17] VITALS (9 sets, daily range): BP systolic 116–136; BP diastolic 54–77
[2020-10-17] MEDS: SOD CHL 0.45%/POT CHL 20MEQ 1,000 ML IV SCH ×4 (00:50→19:00)
[2020-10-17 05:00] LABS: BASOPHILS % 0.2 % (0.0-1.0); EOSINOPHILS # (AUTO) 0.1 (0.0-0.4); EOSINOPHILS % 0.5 % (0.0-6.0); HEMATOCRIT 37.4 % (38.2-49.6); LYMPHOCYTES # (AUTO) 2.7 (1.0-3.2); LYMPHOCYTES % 25.8 % (18.0-39.1); MEAN CORPUSCULAR HGB CONC 32.1 g/dL (31-35); NEUTROPHILS # (AUTO) 6.8 (2.1-6.9); NEUTROPHILS % 64.2 % (38.7-80.0); PLATELET COUNT 235 x10e3/uL (140-360); RED BLOOD COUNT 4.45 x10e6/uL (4.3-5.7); RED CELL DISTRIBUTION WIDTH 15.3 % (11.7-14.4)
[2020-10-17 05:20] LABS: ANION GAP 13.8 mmol/L (8-16); BLOOD UREA NITROGEN 17 mg/dL (7-26); BUN/CREATININE RATIO 18 (6-25); CALCIUM 8.4 mg/dL (8.4-10.2); CARBON DIOXIDE 23 mmol/L (22-29); CHLORIDE 104 mmol/L (98-107); CREATININE, SERUM 0.93 mg/dL (0.72-1.25); EST GLOMERULAR FILTRATION RATE > 60 ML/MIN (60-); GLUCOSE 128 mg/dL (74-118); POTASSIUM 4.8 mmol/L (3.5-5.1); SODIUM 136 mmol/L (136-145)
[2020-10-17] MEDS: PANTOPRAZOLE SOD 40 MG TABEC PO SCH (08:18)
[2020-10-17] MEDS: CEFTRIAXONE SOD 1 GM in SODIUM CHLORIDE 0.9% 50ML 50 ML IV SCH (08:18)
[2020-10-17] MEDS: BENAZEPRIL HCL 10 MG TAB PO SCH (08:18)
[2020-10-17] MEDS: GLIMEPIRIDE 2 MG TAB PO SCH (08:18)
[2020-10-17] MEDS: FINASTERIDE 5 MG TAB PO SCH (08:18)
[2020-10-17] MEDS: DOCUSATE SODIUM 100 MG CAP PO SCH ×2 (08:18→17:01)
[2020-10-17] MEDS: TAMSULOSIN HCL 0.4 MG CAP PO SCH (08:18)
[2020-10-17] MEDS ORDERED: ATORVASTATIN 20 MG TAB PO SCH (21:00)
[2020-10-18] VITALS: BP 122/60
[2020-10-18] MEDS: SOD CHL 0.45%/POT CHL 20MEQ 1,000 ML IV SCH (03:04)
[2020-10-18 04:00] VITALS: BP 123/68
[2020-10-18 04:59] LABS: BASOPHILS # (AUTO) 0.1 (0.0-0.1); BASOPHILS % 0.6 % (0.0-1.0); EOSINOPHILS # (AUTO) 0.2 (0.0-0.4); EOSINOPHILS % 2.7 % (0.0-6.0); HEMATOCRIT 37.7 % (38.2-49.6); HEMOGLOBIN 12.3 g/dL (14.0-18.0); LYMPHOCYTES # (AUTO) 2.2 (1.0-3.2); LYMPHOCYTES % 27.8 % (18.0-39.1); MEAN CORPUSCULAR HEMOGLOBIN 27.7 pg (28-32); MEAN CORPUSCULAR HGB CONC 32.6 g/dL (31-35); MEAN CORPUSCULAR VOLUME 84.9 fL (81-99); MONOCYTES # (AUTO) 0.7 (0.2-0.8); MONOCYTES % 9.2 % (4.4-11.3); NEUTROPHILS # (AUTO) 4.7 (2.1-6.9); NEUTROPHILS % 59.4 % (38.7-80.0); PLATELET COUNT 224 x10e3/uL (140-360); RED BLOOD COUNT 4.44 x10e6/uL (4.3-5.7); RED CELL DISTRIBUTION WIDTH 15.5 % (11.7-14.4)
[2020-10-18 05:14] LABS: ANION GAP 13.6 mmol/L (8-16); BLOOD UREA NITROGEN 14 mg/dL (7-26); BUN/CREATININE RATIO 16 (6-25); CALCIUM 8.4 mg/dL (8.4-10.2); CARBON DIOXIDE 22 mmol/L (22-29); CHLORIDE 106 mmol/L (98-107); CREATININE, SERUM 0.88 mg/dL (0.72-1.25); EST GLOMERULAR FILTRATION RATE > 60 ML/MIN (60-); GLUCOSE 124 mg/dL (74-118); POTASSIUM 4.6 mmol/L (3.5-5.1); SODIUM 137 mmol/L (136-145)
[2020-10-18 08:26] VITALS: BP 139/64
[2020-10-18 09:13] VITALS: BP 139/64
[2020-10-18] MEDS: PANTOPRAZOLE SOD 40 MG TABEC PO SCH (09:32)
[2020-10-18] MEDS: GLIMEPIRIDE 2 MG TAB PO SCH (09:32)
[2020-10-18] MEDS: TAMSULOSIN HCL 0.4 MG CAP PO SCH (09:33)
[2020-10-18] MEDS: DOCUSATE SODIUM 100 MG CAP PO SCH ×2 (09:33→17:00)
[2020-10-18] MEDS: BENAZEPRIL HCL 10 MG TAB PO SCH (09:34)
[2020-10-18] MEDS: FINASTERIDE 5 MG TAB PO SCH (09:34)
[2020-10-18] MEDS: CEFTRIAXONE SOD 1 GM in SODIUM CHLORIDE 0.9% 50ML 50 ML IV SCH (09:45)
[2020-10-18 12:16] VITALS: BP 147/68
[2020-10-18 16:31] VITALS: BP 143/63
[2020-10-18] MEDS ORDERED: LEVOFLOXACIN250 MG PO (18:48)
== END 2020-10-18 20:05 | disposition home or self-care (01) | DRG 713 ==
LOC: OR 10:28 → PACU V 13:36 → MED/SURG 14:50
PROVIDERS: ADMIT Internal Medicine; ATTEND Internal Medicine
PROC: 0T788ZZ Dilation of Bilateral Ureters, Via Natural or Artificial Opening Endoscopic (ICD-10-PCS; 2020-10-16)
PROC: BT141ZZ Fluoroscopy of Kidneys, Ureters and Bladder using Low Osmolar Contrast (ICD-10-PCS; 2020-10-16)
PROC: 0T7D8ZZ Dilation of Urethra, Via Natural or Artificial Opening Endoscopic (ICD-10-PCS; 2020-10-16)
PROC: 0VB08ZZ Excision of Prostate, Via Natural or Artificial Opening Endoscopic (ICD-10-PCS; principal; 2020-10-16 12:30)
DX: N40.1 Benign prostatic hyperplasia with lower urinary tract symptoms (principal); N13.8 Other obstructive and reflux uropathy; E11.9 Type 2 diabetes mellitus without complications; I10 Essential (primary) hypertension; Z20.822 Contact with and (suspected) exposure to COVID-19; N35.819 Other urethral stricture, male, unspecified site; D64.9 Anemia, unspecified; E66.9 Obesity, unspecified; Z68.29 Body mass index [BMI] 29.0-29.9, adult; N50.0 Atrophy of testis; N47.1 Phimosis; E78.5 Hyperlipidemia, unspecified
CPT/HCPCS: 36415; 74420; 80048; 80053; 82948; 83735; 84152; 85025; 93005; C1758; J0696; J1580; J2405; U0002

== ENCOUNTER 2022-02-03 21:51 | Emergency (ER) | payer MEDICARE, OTHER ==
[~2022-02-03] VITALS: Ht 185.4 cm; Wt 102.5 kg
[~2022-02-03 21:51] MED LIST changes: +LEVOFLOXACIN250 MG PO
[2022-02-03] MEDS ORDERED: SODIUM CHLORIDE 0.9% 1000ML 1,000 ML IV STA (22:05)
[2022-02-03 22:31] LABS: BASOPHILS % 0.6 % (0.0-1.0); EOSINOPHILS # (AUTO) 0.1 (0.0-0.4); EOSINOPHILS % 1.9 % (0.0-6.0); HEMATOCRIT 34.8 % (38.2-49.6); LYMPHOCYTES # (AUTO) 0.9 (1.0-3.2); LYMPHOCYTES % 16.4 % (18.0-39.1); MEAN CORPUSCULAR HEMOGLOBIN 27.8 pg (28-32); MEAN CORPUSCULAR HGB CONC 31.6 g/dL (31-35); MEAN CORPUSCULAR VOLUME 87.9 fL (81-99); MONOCYTES # (AUTO) 0.5 (0.2-0.8); MONOCYTES % 8.8 % (4.4-11.3); NEUTROPHILS # (AUTO) 3.8 (2.1-6.9); NEUTROPHILS % 71.9 % (38.7-80.0); PLATELET COUNT 238 x10e3/uL (140-360); RED BLOOD COUNT 3.96 x10e6/uL (4.3-5.7); RED CELL DISTRIBUTION WIDTH 15.4 % (11.7-14.4)
[2022-02-03 22:49] LABS: ALANINE AMINOTRANSFERASE 21 IU/L (0-55); ALBUMIN 3.3 g/dL (3.5-5.0); ALBUMIN/GLOBULIN RATIO 0.8 (0.8-2.0); ALKALINE PHOSPHATASE 88 IU/L (40-150); ANION GAP 15.1 mmol/L (8-16); BLOOD UREA NITROGEN 23 mg/dL (7-26); BUN/CREATININE RATIO 17 (6-25); CALCIUM 8.7 mg/dL (8.4-10.2); CARBON DIOXIDE 26 mmol/L (22-29); CHLORIDE 101 mmol/L (98-107); CREATINE KINASE 165 IU/L (30-200); CREATININE, SERUM 1.36 mg/dL (0.72-1.25); GLUCOSE 136 mg/dL (74-118); POTASSIUM 4.1 mmol/L (3.5-5.1); SODIUM 138 mmol/L (136-145)
== END 2022-02-03 23:41 | disposition home or self-care (01) ==
LOC: ER 22:01
DX: R55 Syncope and collapse (principal); W17.89XA Other fall from one level to another, initial encounter; Y99.0 Civilian activity done for income or pay; E11.65 Type 2 diabetes mellitus with hyperglycemia; I10 Essential (primary) hypertension; E78.5 Hyperlipidemia, unspecified; Z20.822 Contact with and (suspected) exposure to COVID-19; R94.31 Abnormal electrocardiogram [ECG] [EKG]
CPT/HCPCS: 36415; 70450; 71045; 72125; 80053; 82550; 82553; 84484; 85025; 93005; 99284; J7030; U0002

== ENCOUNTER 2022-03-15 13:17 | Emergency (ER) | payer OTHER, MEDICARE ==
[~2022-03-15] VITALS: Ht 185.4 cm; Wt 102.5 kg
[2022-03-15] MEDS ORDERED: CODEINE-GUAIFE120 ML PO (15:57)
[2022-03-15 16:28] VITALS: BP 135/82
== END 2022-03-15 16:29 | disposition home or self-care (01) ==
LOC: ER 13:51
DX: R05.9 Cough, unspecified (principal); U07.1 COVID-19; I10 Essential (primary) hypertension; E11.9 Type 2 diabetes mellitus without complications; E78.5 Hyperlipidemia, unspecified
CPT/HCPCS: 71045; 99282